=== PATIENT | female | born 1975 | race Two or more races ===

== ENCOUNTER 2021-02-13 08:56 | Emergency (ER) | payer OTHER ==
[~2021-02-13] VITALS: Ht 170.2 cm; Wt 140.0 kg
[2021-02-13 09:00] VITALS: BP 140/83
[2021-02-13] MEDS ORDERED: MUPI22OI2 TP (09:37)
[2021-02-13] MEDS ORDERED: CEPH500T PO (09:37)
[2021-02-13] MEDS ORDERED: BETA15CR5 TP (09:37)
--- NOTE | 2021-02-13 09:44 | PHYS DOC ---
General Adult EDM: Chief Complaint: POST-OP PROBLEM HPI: HPI: 45-year-old female presents with concern for cellulitis of her bilateral breasts. The patient had breast implants done in the [facility] back in December. She also had a tummy tuck. She has not been having complications until the last 1 week. She has developed an erythematous and warm feeling rash around both of her areolas. She states that it has been getting worse and is much worse today than yesterday. She contacted her surgeon and he recommended treatment and wrote her prescriptions. The prescriptions are not valid in the [place] however. She denies fever or chills. She has had some clear to light yellow drainage from the area. She denies fever or chills. She has no other complaints at this time. Review of Systems: Review of Systems: Constitutional: Denies fever or chills Eyes: Denies change in visual acuity HENT: Denies nasal congestion or sore throat Respiratory: Denies cough or shortness of breath Cardiovascular: Denies chest pain or edema GI: Denies abdominal pain, nausea, vomiting, bloody stools or diarrhea : Denies dysuria Musculoskeletal: Denies back pain or joint pain Integument: Rash on bilateral breasts Neurologic: Denies headache, focal weakness or sensory changes Endocrine: Denies polyuria or polydipsia Lymphatic: Denies swollen glands Psychiatric: Denies depression or anxiety Physical Exam: PE: Constitutional: Well developed, well nourished, no acute distress, non-toxic appearance. [] HENT: Normocephalic, atraumatic, bilateral external ears normal, oropharynx moist, no oral exudates, nose normal. [] Eyes: PERRLA, EOMI, conjunctiva normal, no discharge. [] Neck: Normal range of motion, no tenderness, supple, no stridor. [] Cardiovascular:Heart rate regular rhythm, no murmur [] Lungs & Thorax: Bilateral breath sounds clear to auscultation [] Abdomen: Bowel sounds normal, soft, no tenderness, no masses, no pulsatile masses. [] Skin: Bilateral breasts with warm erythematous rash around the areolas consistent with strep infection. [] Back: No tenderness, no CVA tenderness. [] Extremities: No tenderness, no cyanosis, no clubbing, ROM intact, no edema. [] Neurologic: Alert and oriented X 3, normal motor function, normal sensory function, no focal deficits noted. [] Psychologic: Affect normal, judgement normal, mood normal. [] EKG: EKG: [] Radiology/Procedures: Radiology/Procedures: [] Heart Score: C/O Chest Pain: N/A Risk Factors: Risk Factors: DM, Current or recent (<one month) smoker, HTN, HLP, family history of CAD, obesity. Risk Scores: Score 0 - 3: 2.5% MACE over next 6 weeks - Discharge Home Score 4 - 6: 20.3% MACE over next 6 weeks - Admit for Clinical Observation Score 7 - 10: 72.7% MACE over next 6 weeks - Early Invasive Strategies Course & Med Decision Making: Course & Med Decision Making Pertinent Labs and Imaging studies reviewed. (See chart for details) The patient showed me the prescriptions that her surgeon recommended. After my exam, I agree these make the most sense as this appears to be a strep skin infec tion. I will write her prescriptions for Keflex, mupirocin, and betamethasone. She is stable for discharge at this time. [] Dragon Disclaimer: Dragon Disclaimer: This electronic medical record was generated, in whole or in part, using a voice recognition dictation system. Departure Departure: Impression: Primary Impression: Cellulitis of female breast Disposition: HOME / SELF CARE / HOMELESS Condition: STABLE Referrals: DELFINO VUONG MD (PCP) Patient Instructions: Cellulitis, [id number] Scripts Betamethasone Dipropionate (BETAMETHASONE DIPROPIONATE) 15 Gm Cream..g. 1 MONIQUE TP BID for skin problem for 7 Days, #45 GM 1 Refill 0.1% cream Prov: STEVE CHAN DO 02/13/21 Mupirocin (MUPIROCIN) 22 Gm Oint...g. 1 MONIQUE TP TID for cellulitis for 7 Days, #22 GM Prov: STEVE CHAN DO 02/13/21 Cephalexin (CEPHALEXIN) 500 Mg Tablet 1 TAB PO TID for cellulitis for 14 Days, #42 TAB Prov: STEVE CHAN DO 02/13/21 STEVE CHAN DO Feb 13, 2021 09:43
== END 2021-02-13 09:55 | disposition home or self-care (01) ==
LOC: ER 08:56
DX: N61.0 Mastitis without abscess (principal)
CPT/HCPCS: 99283